=== PATIENT | female | born 1975 | race African-American/Black ===

== ENCOUNTER 2024-08-17 12:05 | Emergency (ER) | payer BC, OTHER ==
[2024-08-17 12:37] VITALS: TEMP 97.5; BMI 39.0
[2024-08-17] MEDS ORDERED: FAMOTIDINE 20 MG/50 ML IVPB 20 MG/50 ML MG IVPB ONE (12:44)
[2024-08-17] MEDS ORDERED: ACETAMINOPHEN INJECTION 100 ML ONE (12:44)
[2024-08-17] MEDS ORDERED: ONDANSETRON 4 MG/2 ML VIAL ONE (12:44)
[2024-08-17] MEDS: FAMOTIDINE 20 MG/50 ML IVPB 20 MG/50 ML MG IVPB ONE (13:12)
[2024-08-17] MEDS: ACETAMINOPHEN 1000 MG/100 ML BAG IVPB ONE (13:12)
[2024-08-17] MEDS: ONDANSETRON 4 MG/2 ML VIAL IVPUSH ONE (13:12)
[2024-08-17] MEDS: ONDANSETRON *ODT* 4 MG TABLET SL ONE (13:13)
[2024-08-17] MEDS: SODIUM CHLORIDE 1,000 ML IV STA (13:13)
[2024-08-17 13:18] LABS: ABSOLUTE IMMATURE GRANULOCYTES 0.09 x10^3/uL (0.0-0.031); BASOPHILS # 0.07 x10^3/uL (0.01-0.08); EOSINOPHIL % 1.7 % (0.7-5.8); EOSINOPHILS # 0.32 x10^3/uL (0.04-0.36); HEMATOCRIT 40.9 % (34.1-44.9); MCHC 31.8 g/dl (32.2-35.5); MEAN PLT VOLUME 11.2 fl (9.4-12.3); MONOCYTE # 0.74 x10^3/uL (0.24-0.86); MONOCYTE % 3.9 % (4.7-12.5); PLATELET COUNT 332 x10^3/uL (182-369); RDW 12.4 % (12.2-17.1)
[2024-08-17 13:51] LABS: CALCIUM 9.5 mg/dL (8.5-10.1)
[2024-08-17 13:52] LABS: ALBUMIN 4.2 g/dl (3.4-5.0); BLOOD UREA NITROGEN 6.2 mg/dL (7-18); MAGNESIUM 1.8 mg/dL (1.8-2.4)
[2024-08-17 13:56] LABS: BILIRUBIN,TOTAL 0.4 mg/dL (0.2-1); CREATININE 0.9 mg/dL (0.55-1.3); TOT PROT 7.9 g/dl (6.4-8.2)
[2024-08-17] MEDS ORDERED: RAPID SEQUENCE INTUBATION KIT NR ONE (14:23)
[2024-08-17] MEDS: ETOMIDATE 20 MG/10 ML VIAL IVPUSH ONE ×2 (14:25→17:48)
[2024-08-17] MEDS: SUCCINYLCHOLINE CHLORIDE 200 MG/10 ML VIAL IVPUSH ONE (14:25)
[2024-08-17] MEDS ORDERED: ETOMIDATE 20 MG/10 ML VIAL IVPUSH ONE (14:35)
[2024-08-17] MEDS: PROPOFOL 200 MG/20 ML VIAL IVPUSH ONE ×2 (14:35→14:55)
[2024-08-17 14:53] VITALS: RESP 25
[2024-08-17 15:32] VITALS: BP 243/129; PULSE 107
[2024-08-17] MEDS: ROCURONIUM BROMIDE 50 MG/5 ML VIAL IV ONE (17:48)
[2024-08-17] MEDS: NICARDIPINE 25 MG in DEXTROSE 5%-WATER - 240 ML IVPB SCH (17:48)
[2024-08-17] MEDS: PROPOFOL 1,000,000 MCG/100 ML VIAL IVPB SCH (17:49)
== END 2024-08-17 17:00 | disposition short-term general hospital (02) ==
LOC: JER 12:05
PROC: 0JHF3XZ Insertion of Tunneled Vascular Access Device into Left Upper Arm Subcutaneous Tissue and Fascia, Percutaneous Approach (ICD-10-PCS; principal; 2024-08-17)
PROC: 0BH17EZ Insertion of Endotracheal Airway into Trachea, Via Natural or Artificial Opening (ICD-10-PCS; 2024-08-17)
DX: I61.5 Nontraumatic intracerebral hemorrhage, intraventricular (principal); R11.2 Nausea with vomiting, unspecified; R51.9 Headache, unspecified
CPT/HCPCS: 36415; 70450-TC; 71045-TC-FY; 80053; 82962; 83690; 83735; 84484; 84703; 85025; 93005; 93010; 99285-25; J0131